=== PATIENT | female | born 1965 | race Caucasian/White ===

== ENCOUNTER 2018-03-22 15:37 | Inpatient (IN) | payer SELFPAY ==
[2018-03-22] MEDS ORDERED: methylPREDNISolone Sod Succ/PF 125 MG/2 ML VIAL ONE (15:43)
[2018-03-22] MEDS ORDERED: Albuterol Sulfate 2.5 mg/3 ml Neb ONE ×2 (15:54→16:27)
[2018-03-22] MEDS ORDERED: Albuterol Sulfate 2.5 mg/0.5 ml Neb ONE ×2 (15:54→16:26)
[2018-03-22 15:57] LABS: Lactate 0.81 mmol/L (0.50-2.20)
[2018-03-22] MEDS ORDERED: cefTRIAXone\\ROCEPHIN 1 GM VIAL ONE (16:07)
[2018-03-22 16:10] LABS: #Basophils 0.1 thou/uL (0.0-0.2); #Eosinphils 0.1 thou/uL (0.0-0.7); #Lymphocytes 3.2 thou/uL (1.20-3.40); #Monocytes 1.1 thou/uL (0.11-0.59); #Neutrophils 6.9 thou/uL (1.40-6.50); %Basophils 0.5 % (0.0-1.0); %Eosinophils 0.5 % (0.0-10.0); %Lymphocytes 28.3 % (21.0-51.0); %Monocytes 9.9 % (0.0-10.0); %Neutrophils 60.7 % (42.0-75.0); Hemoglobin 15.7 g/dL (12.0-16.0); Mean Corpuscular HGB CONC 31.4 g/dL (32.0-36.0); Mean Corpuscular Volume 92.3 fL (78.0-98.0); Mean Platelet Volume 8.5 fL (7.4-10.4); Platelet Count 187 thou/uL (130-400); RBC Distribution Width 12.8 % (11.5-14.5); Red Blood Cell (RBC) Count 5.43 mill/uL (4.20-5.40); White Blood Cell (WBC) Count 11.3 thou/uL (4.8-10.8)
--- NOTE | 2018-03-22 16:26 | RAD ---
FRONTAL VIEW CHEST: Comparison: 01-13-18 Indication: Cough. FINDINGS: There is no evidence of consolidation, effusion, or discrete pneumothorax. Cardiac silhouette is with in normal limits of size for portable technique. IMPRESSION: No focal consolidation. POS: MARGOT
[2018-03-22 16:31] LABS: ALT (SGPT) 18 U/L (8-55); AST (SGOT) 23 U/L (5-34); Albumin 4.3 g/dL (3.5-5.0); Alkaline Phosphatase 99 U/L (40-150); Anion Gap 14 mmol/L (10-20); BUN (Urea Nitrogen) 16 mg/dL (9.8-20.1); Bilirubin, Total 0.4 mg/dL (0.2-1.2); CK (CPK) 362 U/L (29-168); Calc. Creatinine Clearance 0 mL/min (70-130); Calcium 9.7 mg/dL (7.8-10.44); Carbon Dioxide 29 mmol/L (22-29); Chloride 100 mmol/L (98-107); Estimated GFR-MDRD 71; Globulin 3.7 g/dL (2.4-3.5); Glucose 101 mg/dL (70-105); Potassium 4.1 mmol/L (3.5-5.1); Sodium 139 mmol/L (136-145)
[2018-03-22 16:34] LABS: Troponin I Less than 0.010 ng/mL (< 0.028)
[2018-03-22 16:38] LABS: CKMB 6.9 ng/mL (0-6.6)
[2018-03-22] MEDS ORDERED: Azithromycin 500 MG VIAL ONE (16:41)
[2018-03-22] MEDS ORDERED: Acetaminophen 325 MG TAB PO PRN (20:20)
[2018-03-22] MEDS ORDERED: Benzonatate 100 MG CAP PO PRN (20:20)
[2018-03-22] MEDS ORDERED: Dextrose 50% Abboject 50 ML SYRINGE SLOW IVP PRN (20:20)
[2018-03-22] MEDS ORDERED: hydrALAZINE 20 MG/ML VIAL SLOW IVP PRN (20:20)
[2018-03-22] MEDS ORDERED: Dextrose 5% in Water 1,000 ML IV PRN (20:20)
[2018-03-22] MEDS ORDERED: Phenergan/Codeine 10-6.25mg/5ml UDCUP PO PRN (20:20)
[2018-03-22] MEDS ORDERED: HumaLOG 300 UNITS/3 ML VIAL SC PRN (20:20)
[2018-03-22] MEDS ORDERED: Magnesium 2 GM/50 ML 2 GM in Premix Bag 1 BAG IVPB SCH (21:00)
[2018-03-22] MEDS ORDERED: methylPREDNISolone Sod Succ/PF 125 MG/2 ML VIAL IVP SCH (22:00)
[2018-03-22] MEDS: Nicotine 14 MG PATCH TD SCH (22:40)
[2018-03-22] MEDS: Famotidine 20 MG TAB PO SCH (22:40)
[2018-03-23 00:32] VITALS: BMI 44.1
--- NOTE | 2018-03-23 03:42 | HP ---
PRIMARY CARE PHYSICIAN: Dr. Ceja. CHIEF COMPLAINT: Shortness of breath and cough and wheezing. HISTORY OF PRESENT ILLNESS: Ms. Aguust is a very pleasant 52-year-old female that has a history of a sthma, hypertension, and diabetes. She was in her usual state of health until approximately 4 days p rior to admission. She says that on Thursday, she went to the emergency room at [facility] she was having wheezing and feeling short of breath. She was given some neb treatments and steroi ds and was treated for UTI as well as constipation and discharged. She says that she felt okay at le ast to the point where she could go to work on Thursday and Thursday; however, she was still somewhat s hort of breath. She says that it got again bad. On Thursday morning, she started wheezing again, feel ing hot and then was having extreme cough. She says that the coughing spells would take a lot out of her and as a result, she came to our emergency room for evaluation. There, she was given several ne b treatments and it was noted that her blood pressure was elevated as well as heart rate and she is b eing admitted for COPD exacerbation. She says that she has had asthma all of her life, since she was a young child. She has never been diagnosed with COPD. She says that until she moved here about 6 months ago, she would only have one attack a year, but in the last 6 months, she has had 4 to 5 attac ks. She never had to be hospitalized before. She does admit that she has been a fairly heavy smoker over the years. REVIEW OF SYSTEMS: All systems were reviewed and are negative except for that mentioned in the histo ry of present illness. PAST MEDICAL HISTORY: Significant for hypertension, diabetes, asthma, and peptic ulcer disease. PAST SURGICAL HISTORY: She has had bilateral tubal ligation and right ankle surgery. ALLERGIES: No known drug allergies. SOCIAL HISTORY: She is but . She is a nondrinker, but she does smoke about half a pack of cigarettes a day. Prior to that, she smoked a pack a day for 45 years. She has 2 children a nd she is a FULL [employer]. FAMILY HISTORY: Significant for valvular heart disease in her mother. MEDICATIONS: Include metformin 500 mg daily, lisinopril 10 mg once a day, Keflex 500 q.6., prednison e 50 mg, aspirin 81 mg daily, and ranitidine 150 mg daily. PHYSICAL EXAMINATION: GENERAL: She is alert and oriented. She appears to be in some distress due to dyspnea. She is well -developed, well-nourished. VITAL SIGNS: Blood pressure is now 132/64, heart rate 118, respiratory rate of 24, temperature is 97 .7. HEENT: Pupils are equal, round, and reactive. Extraocular muscles are intact. Her sclerae anicteri c. Throat: There is no erythema, no exudates. NECK: No adenopathy, no bruits. LUNGS: She has got fairly tight wheezing throughout both lung nava, no rales, no rhonchi. CARDIOVASCULAR: She has a normal S1, S2. I do not appreciate an S3 or S4. No murmurs, clicks or ru bs. ABDOMEN: Obese, it is soft, it is nontender, nondistended. Positive for bowel sounds. There is no rebound, no guarding. EXTREMITIES: There is trace pedal edema, no calf tenderness. No joint effusions. NEUROLOGIC: Muscle strength is 5/5 in both her upper and lower extremities, and there is no focal we akness. SKIN AND INTEGUMENT: No skin changes. No rash. LABORATORY DATA AND X-RAYS: On her chest x-ray, she has a normal heart size. There is no evidence o f any infiltrates and her lungs are slightly hyperexpanded this is by my reading. Lab results, tropo nins less 0.010. Sodium 139, potassium 4.1, chloride is 100, CO2 is 29, BUN is 16, creatinine 0.84, glucose is 101. The white blood cell count is 11.3, hemoglobin 15.7, hematocrit is 50.1, platelet co unt is 187. ASSESSMENT AND PLAN: This is a pleasant 52-year-old female who presents with an asthma/asthmatic bro nchitis exacerbation. She has acute respiratory failure secondary to this. She will be admitted to the medical floor, started on DuoNebs, IV steroids, a long-acting beta agonist as well as empiric ant ibiotics. We will give her a dose of IV magnesium and she will also be placed on deep venous thrombo sis as well as gastrointestinal prophylaxis. 1. For diabetes mellitus, we will continue her home medications as well as sliding scale insulin. 2. Hypertension. Again, continue home medications and p.r.n. as needed.
[2018-03-23 04:58] LABS: #Lymphocytes 0.8 thou/uL (1.20-3.40); #Monocytes 0.2 thou/uL (0.11-0.59); #Neutrophils 6.5 thou/uL (1.40-6.50); %Basophils 0.3 % (0.0-1.0); %Eosinophils 0.3 % (0.0-10.0); %Monocytes 2.7 % (0.0-10.0); %Neutrophils 86.7 % (42.0-75.0); Hemoglobin 14.6 g/dL (12.0-16.0); Mean Corpuscular HGB CONC 31.6 g/dL (32.0-36.0); Mean Corpuscular Hemoglobin 29.3 pg (27.0-31.0); Mean Corpuscular Volume 92.6 fL (78.0-98.0); Mean Platelet Volume 8.5 fL (7.4-10.4); Platelet Count 165 thou/uL (130-400); RBC Distribution Width 12.8 % (11.5-14.5); Red Blood Cell (RBC) Count 4.99 mill/uL (4.20-5.40); White Blood Cell (WBC) Count 7.5 thou/uL (4.8-10.8)
[2018-03-23 05:06] LABS: Anion Gap 11 mmol/L (10-20); BUN (Urea Nitrogen) 14 mg/dL (9.8-20.1); Calc. Creatinine Clearance 156 mL/min (70-130); Calcium 9.1 mg/dL (7.8-10.44); Carbon Dioxide 27 mmol/L (22-29); Chloride 101 mmol/L (98-107); Estimated GFR-MDRD 79; Glucose 211 mg/dL (70-105); Sodium 134 mmol/L (136-145)
[2018-03-23] MEDS: Mometasone/Formoterol 120 PUFF INHALER INH SCH ×2 (07:00→19:04)
[2018-03-23] MEDS: Famotidine 20 MG TAB PO SCH ×2 (10:04→20:16)
[2018-03-23] MEDS: Lisinopril 10 MG TAB PO SCH (10:05)
[2018-03-23] MEDS: Enoxaparin Sodium 40 MG/0.4 ML SYRINGE SC SCH (10:05)
[2018-03-23] MEDS: Aspirin 81 mg Enteric Coated Tablet PO SCH (10:06)
[2018-03-23] MEDS: HumaLOG 300 UNITS/3 ML VIAL SC PRN ×2 (12:11→16:13)
--- NOTE | 2018-03-23 12:29 | PDOC.PN ---
- Subjective Encounter Start Date: 03/23/18 Encounter Start Time: 12:27 Ms. August was seen today in follow-up of Asthma/COPD exacerbation. She says she feels a little better today. She is breathing better, and is less short of breath. - Objective Resuscitation Status: Resuscitation Status FULL:Full Resuscitation MAR Reviewed: Yes Vital Signs & Weight: Vital Signs (12 hours) Temp Pulse Resp BP BP Pulse Ox 03/23/18 12:04 90 16 03/23/18 11:00 97.7 F 83 18 135/92 H 91 L 03/23/18 10:05 127/87 03/23/18 08:00 98.1 F 89 20 127/87 94 L 03/23/18 07:03 80 16 03/23/18 04:00 98.0 F 87 20 137/89 91 L 03/23/18 00:44 89 20 92 L Weight Weight 257 lb 1 oz I&O: 03/22/18 03/23/18 03/24/18 06:59 06:59 06:59 Intake Total 1350 Balance 1350 Result Diagrams: 03/23/18 04:42 03/23/18 04:42 Additional Labs: Accuchecks 03/23/18 03/23/18 03/22/18 11:42 06:05 22:51 POC Glucose 183 H 175 H 240 H Phys Exam - Physical Examination HEENT: PERRLA Respiratory: no rales, wheezing present + fairly tight bilater wheezing- improved from yesterday Cardiovascular: RRR, no significant murmur, no rub Gastrointestinal: soft, non-tender, no distention, positive bowel sounds Musculoskeletal: no edema Dx/Plan (1) Asthma exacerbation in COPD Code(s): J44.1 - CHRONIC OBSTRUCTIVE PULMONARY DISEASE W (ACUTE) EXACERBATION; J45.901 - UNSPECIFIED ASTHMA WITH (ACUTE) EXACERBATION Status: Acute (2) Acute respiratory failure with hypoxemia Code(s): J96.01 - ACUTE RESPIRATORY FAILURE WITH HYPOXIA Status: Acute (3) Hypertension Code(s): I10 - ESSENTIAL (PRIMARY) HYPERTENSION Status: Chronic (4) Diabetes mellitus type 2 in obese Code(s): E11.69 - TYPE 2 DIABETES MELLITUS WITH OTHER SPECIFIED COMPLICATION; E66.9 - OBESITY, UNSPECIFIED Status: Chronic (5) Tobacco abuse Code(s): Z72.0 - TOBACCO USE Status: Chronic - Plan * Asthma Exacerbation- she is improving - will continue Duonebs, and Steroids, and antibiotics. She is not yet ready for discharge * HTN- blood pressure is better- continue her home medications. * DM- blood glucose is stable- continue Metformin, and SSI * Ambulate * Discussed smoking cessation
[2018-03-23] MEDS: cefTRIAXone\\ROCEPHIN 1 GM in Sodium Chloride 0.9% 100 ML IVPB SCH (16:08)
[2018-03-23] MEDS: Azithromycin 500 MG in Sodium Chloride 0.9% 250 ML 250 ML IVPB SCH (17:32)
[2018-03-23] MEDS: Ipratropium Oral Inhaler (200 INHALATIONS) INH SCH (19:05)
[2018-03-23] MEDS: Nicotine 14 MG PATCH TD SCH (20:16)
[2018-03-24] MEDS: Mometasone/Formoterol 120 PUFF INHALER INH SCH ×2 (06:40→19:16)
[2018-03-24] MEDS: Ipratropium Oral Inhaler (200 INHALATIONS) INH SCH ×2 (06:43→19:17)
[2018-03-24] MEDS: Enoxaparin Sodium 40 MG/0.4 ML SYRINGE SC SCH (08:32)
[2018-03-24] MEDS: Lisinopril 10 MG TAB PO SCH (08:32)
[2018-03-24] MEDS: Aspirin 81 mg Enteric Coated Tablet PO SCH (08:32)
[2018-03-24] MEDS: metFORMIN 500 MG TAB PO SCH (08:32)
[2018-03-24] MEDS: Famotidine 20 MG TAB PO SCH ×2 (08:32→20:27)
[2018-03-24] MEDS ORDERED: Prevnar 13-Val Conj/PF 0.5 ML SYRINGE IM ONE (09:00)
--- NOTE | 2018-03-24 11:37 | PDOC.PN ---
- Subjective Encounter Start Date: 03/24/18 Encounter Start Time: 11:36 Ms. August was seen today in follow-up of Asthma and COPD exacerbation. She is feeling a bit better, but still quite fatigued. She has not been up to ambulate today. - Objective Resuscitation Status: Resuscitation Status FULL:Full Resuscitation MAR Reviewed: Yes Vital Signs & Weight: Vital Signs (12 hours) Pulse Resp BP Pulse Ox 03/24/18 08:32 128/90 03/24/18 08:00 98 03/24/18 06:43 73 16 97 03/24/18 06:40 73 16 97 03/24/18 00:21 90 20 97 Weight Weight 257 lb 1 oz I&O: 03/23/18 03/24/18 03/25/18 06:59 06:59 06:59 Intake Total 1350 2740 Balance 1350 2740 Result Diagrams: 03/23/18 04:42 03/23/18 04:42 Additional Labs: Accuchecks 03/24/18 03/23/18 03/23/18 05:30 19:45 16:12 POC Glucose 173 H 162 H 204 H 03/23/18 11:42 POC Glucose 183 H Phys Exam - Physical Examination HEENT: PERRLA Respiratory: no rales, no rhonchi, wheezing present Cardiovascular: RRR, no significant murmur, no rub Gastrointestinal: soft, non-tender, no distention, positive bowel sounds Musculoskeletal: pulses present, edema present trace pedal edema Neurological: non-focal, moves all 4 limbs Dx/Plan (1) Asthma exacerbation in COPD Code(s): J44.1 - CHRONIC OBSTRUCTIVE PULMONARY DISEASE W (ACUTE) EXACERBATION; J45.901 - UNSPECIFIED ASTHMA WITH (ACUTE) EXACERBATION Status: Acute (2) Acute respiratory failure with hypoxemia Code(s): J96.01 - ACUTE RESPIRATORY FAILURE WITH HYPOXIA Status: Acute (3) Hypertension Code(s): I10 - ESSENTIAL (PRIMARY) HYPERTENSION Status: Chronic (4) Diabetes mellitus type 2 in obese Code(s): E11.69 - TYPE 2 DIABETES MELLITUS WITH OTHER SPECIFIED COMPLICATION; E66.9 - OBESITY, UNSPECIFIED Status: Chronic (5) Tobacco abuse Code(s): Z72.0 - TOBACCO USE Status: Chronic - Plan * Asthma/ COPD exacerbation - slowly improving. Will add Singulair,and will begin to torri steroids * Continue Rocephin and Zithromycin * DM- blood glucose is stable * HTN- blood pressure is stable * Tobacco Abuse- continue nicotine patch.
[2018-03-24] MEDS: HumaLOG 300 UNITS/3 ML VIAL SC PRN (12:15)
[2018-03-24] MEDS: cefTRIAXone\\ROCEPHIN 1 GM in Sodium Chloride 0.9% 100 ML IVPB SCH (16:44)
[2018-03-24] MEDS: Azithromycin 500 MG in Sodium Chloride 0.9% 250 ML 250 ML IVPB SCH (17:54)
[2018-03-24] MEDS ORDERED: Milk Of Magnesia 30 ML UDCUP PO PRN (19:13)
[2018-03-24] MEDS: Bisacodyl 5 MG TAB PO SCH (20:27)
[2018-03-24] MEDS: Montelukast Sodium 10 mg Tablet PO SCH (20:27)
[2018-03-24] MEDS: Nicotine 14 MG PATCH TD SCH (20:28)
[2018-03-25] MEDS: Ipratropium Oral Inhaler (200 INHALATIONS) INH SCH ×2 (06:42→19:01)
[2018-03-25] MEDS: Mometasone/Formoterol 120 PUFF INHALER INH SCH ×2 (06:43→18:58)
[2018-03-25] MEDS: Lisinopril 10 MG TAB PO SCH (09:03)
[2018-03-25] MEDS: Famotidine 20 MG TAB PO SCH ×2 (09:03→20:16)
[2018-03-25] MEDS: metFORMIN 500 MG TAB PO SCH (09:03)
[2018-03-25] MEDS: Aspirin 81 mg Enteric Coated Tablet PO SCH (09:03)
[2018-03-25] MEDS: Enoxaparin Sodium 40 MG/0.4 ML SYRINGE SC SCH (09:05)
--- NOTE | 2018-03-25 13:25 | PDOC.PN ---
- Subjective Encounter Start Date: 03/25/18 Encounter Start Time: 13:23 Subjective: Feeling better, no longer SOB - Objective Resuscitation Status: Resuscitation Status FULL:Full Resuscitation MAR Reviewed: Yes Vital Signs & Weight: Vital Signs (12 hours) Temp Pulse Resp BP BP Pulse Ox 03/25/18 11:45 98.0 F 84 20 154/97 H 97 03/25/18 09:03 129/89 95 03/25/18 08:00 95 03/25/18 07:45 98.2 F 79 20 129/89 90 L 03/25/18 06:46 97 03/25/18 06:45 75 16 97 03/25/18 06:43 78 16 97 Weight Weight 257 lb 1 oz I&O: 03/24/18 03/25/18 03/26/18 06:59 06:59 06:59 Intake Total 0 2029 Balance 2739 2029 Result Diagrams: 03/23/18 04:42 03/23/18 04:42 Additional Labs: Accuchecks 03/25/18 03/25/18 03/24/18 11:04 04:54 19:34 POC Glucose 120 H 94 131 H 03/24/18 16:53 POC Glucose 111 H Phys Exam - Physical Examination HEENT: PERRLA, moist MMs, sclera anicteric, TM's clear, oral pharynx no lesions , 2+ tonsils Neck: no nodes, no JVD, supple, full ROM Respiratory: wheezing present Cardiovascular: RRR, no significant murmur, no rub, gallop, irregular Gastrointestinal: soft, non-tender, no distention, positive bowel sounds Musculoskeletal: no edema, pulses present Neurological: non-focal, normal sensation, moves all 4 limbs Dx/Plan (1) Acute respiratory failure with hypoxemia Code(s): J96.01 - ACUTE RESPIRATORY FAILURE WITH HYPOXIA Status: Acute Comment: Continue IV abx, nebs and steroids, oxygen (2) Asthma exacerbation in COPD Code(s): J44.1 - CHRONIC OBSTRUCTIVE PULMONARY DISEASE W (ACUTE) EXACERBATION; J45.901 - UNSPECIFIED ASTHMA WITH (ACUTE) EXACERBATION Status: Acute (3) Diabetes mellitus type 2 in obese Code(s): E11.69 - TYPE 2 DIABETES MELLITUS WITH OTHER SPECIFIED COMPLICATION; E66.9 - OBESITY, UNSPECIFIED Status: Chronic Comment: Insulin SS and Metformin (4) Hypertension Code(s): I10 - ESSENTIAL (PRIMARY) HYPERTENSION Status: Chronic Comment: continue home meds (5) Tobacco abuse Code(s): Z72.0 - TOBACCO USE Status: Chronic - Plan cont current plan of care, continue antibiotics, respiratory therapy, DVT proph w/lovenox, DVT proph w/SCDs * .
[2018-03-25] MEDS: cefTRIAXone\\ROCEPHIN 1 GM in Sodium Chloride 0.9% 100 ML IVPB SCH (17:00)
[2018-03-25] MEDS: HumaLOG 300 UNITS/3 ML VIAL SC PRN (17:02)
[2018-03-25] MEDS: Azithromycin 500 MG in Sodium Chloride 0.9% 250 ML 250 ML IVPB SCH (18:10)
[2018-03-25] MEDS: Nicotine 14 MG PATCH TD SCH (20:16)
[2018-03-25] MEDS: Montelukast Sodium 10 mg Tablet PO SCH (20:16)
[2018-03-25] MEDS: Bisacodyl 5 MG TAB PO SCH (20:16)
[2018-03-26] MEDS: Ipratropium Oral Inhaler (200 INHALATIONS) INH SCH ×2 (06:29→18:18)
[2018-03-26] MEDS: Mometasone/Formoterol 120 PUFF INHALER INH SCH ×2 (06:30→18:17)
[2018-03-26] MEDS: Lisinopril 10 MG TAB PO SCH (07:40)
[2018-03-26] MEDS: Famotidine 20 MG TAB PO SCH ×2 (07:40→20:40)
[2018-03-26] MEDS: metFORMIN 500 MG TAB PO SCH (07:40)
[2018-03-26] MEDS: Enoxaparin Sodium 40 MG/0.4 ML SYRINGE SC SCH (07:40)
[2018-03-26] MEDS: Aspirin 81 mg Enteric Coated Tablet PO SCH (07:40)
--- NOTE | 2018-03-26 14:41 | PDOC.PN ---
- Subjective Encounter Start Date: 03/26/18 Encounter Start Time: 12:00 Subjective: pt up in bed coughing - Objective Resuscitation Status: Resuscitation Status FULL:Full Resuscitation Vital Signs & Weight: Vital Signs (12 hours) Temp Pulse Resp BP BP BP Pulse Ox 03/26/18 12:14 100 20 95 03/26/18 11:31 98.9 F 99 21 H 142/84 H 92 L 03/26/18 08:00 93 L 03/26/18 07:41 98.2 F 89 20 123/89 93 L 03/26/18 07:40 123/89 03/26/18 06:30 91 18 95 03/26/18 06:28 91 18 95 03/26/18 04:00 97.4 F L 83 18 129/86 91 L Weight Weight 257 lb 1 oz I&O: 03/25/18 03/26/18 03/27/18 06:59 06:59 06:59 Intake Total 2029 500 Balance 2029 500 Result Diagrams: 03/23/18 04:42 03/23/18 04:42 Additional Labs: Accuchecks 03/26/18 03/26/18 03/25/18 11:31 05:01 20:42 POC Glucose 160 H 108 121 H 03/25/18 15:32 POC Glucose 211 H Phys Exam - Physical Examination Neck: no nodes, no JVD, supple, full ROM Respiratory: wheezing present mild rhonchi all over too Cardiovascular: RRR, no significant murmur, no rub, gallop, irregular Gastrointestinal: soft, non-tender, no distention, positive bowel sounds Musculoskeletal: no edema, pulses present, edema present Dx/Plan (1) Acute respiratory failure with hypoxemia Code(s): J96.01 - ACUTE RESPIRATORY FAILURE WITH HYPOXIA Status: Acute Comment: Continue IV abx, nebs and steroids, oxygen (2) Hypertension Code(s): I10 - ESSENTIAL (PRIMARY) HYPERTENSION Status: Chronic Comment: continue home meds (3) Tobacco abuse Code(s): Z72.0 - TOBACCO USE Status: Chronic - Plan will continue current tx -: pt appears ill, will add meds for cough and mucinex -: continue duoneb * . Review of Systems - Review of Systems Respiratory: Cough, Shortness of Breath, Wheezing Cardiovascular: negative: chest pain, palpitations, orthopnea, paroxysmal nocturnal dyspnea, edema, light headedness, other Gastrointestinal: negative: Nausea, Vomiting, Abdominal Pain, Diarrhea, Constipation, Melena, Hematochezia, Other - Medications/Allergies Allergies/Adverse Reactions: Allergies Allergy/AdvReac Type Severity Reaction Status Date / Time No Known Allergies Allergy Unverified 03/22/18 19:30 Medications: Current Medications Acetaminophen (Tylenol) 650 mg PO Q4H PRN PRN Reason: Headache/Fever/Mild Pain (1-3) Last Admin: 03/23/18 10:14 Dose: 650 mg Albuterol/Ipratropium (Duoneb) 3 ml NEB [id number] PRN PRN Reason: SOB &/or Wheezing Albuterol/Ipratropium (Duoneb) 3 ml NEB [id number] [facility] Last Admin: 03/26/18 12:14 Dose: 3 ml Aspirin (Ecotrin) 81 mg PO DAILY [facility] Last Admin: 03/26/18 07:40 Dose: 81 mg Benzonatate (Tessalon) 100 mg PO Q6H PRN PRN Reason: Cough Bisacodyl (Dulcolax) 10 mg PO HS [facility] Last Admin: 03/25/18 20:16 Dose: 10 mg Dextrose/Water (Dextrose 50%) 25 gm SLOW IVP PRN PRN PRN Reason: Hypoglycemia Enoxaparin Sodium (Lovenox) 40 mg SC 0900 [facility] Last Admin: 03/26/18 07:40 Dose: 40 mg Famotidine (Pepcid) 20 mg PO BID [facility] Last Admin: 03/26/18 07:40 Dose: 20 mg Glucagon (Glucagon) 1 mg IM PRN PRN PRN Reason: Hypoglycemia Guaifenesin (Mucinex) 600 mg PO Q12HR [facility] Hydralazine HCl (Apresoline) 10 mg SLOW IVP Q4H PRN PRN Reason: SBP > 180 and HR < 70 Azithromycin 500 mg/ Sodium (Chloride) 250 mls @ 250 mls/hr IVPB Q24HR [facility] Last Admin: 03/25/18 18:10 Dose: 250 mls Ceftriaxone Sodium 1 gm/ (Sodium Chloride) 100 mls @ 200 mls/hr IVPB Q24HR [facility] Last Admin: 03/25/18 17:00 Dose: 100 mls Dextrose/Water (D5w) 1,000 mls @ 0 mls/hr IV .Q0M PRN PRN Reason: Hypoglycemia Insulin Human Lispro (Humalog) 0 units SC .MODERATE SLIDING SC PRN PRN Reason: Moderate Correctional Scale Last Admin: 03/25/18 17:02 Dose: 4 unit Insulin Human Lispro (Humalog) 0 units SC .BEDTIME SLIDING SC PRN PRN Reason: Bedtime Correctional Scale Last Admin: 03/22/18 23:09 Dose: 2 unit Ipratropium [place] (Atrovent Hfa) 2 puff INH BID-RT [facility] Last Admin: 03/26/18 06:29 Dose: Not Given Lisinopril (Zestril) 10 mg PO DAILY [facility] Last Admin: 03/26/18 07:40 Dose: 10 mg Magnesium Hydroxide (Milk Of Magnesium) 30 ml PO Q6H PRN PRN Reason: Constipation Metformin HCl (Glucophage) 500 mg PO QAM-WM [facility] Last Admin: 03/26/18 07:40 Dose: 500 mg Methylprednisolone Sodium Succinate (Solu-Medrol) 40 mg IVP DAILY [facility] Last Admin: 03/26/18 07:48 Dose: 40 mg Mometasone Furoate/Formoterol Fumar (Dulera 100 Mcg/5 Mcg Inhaler) 1 puff INH BID-RT [facility] Last Admin: 03/26/18 06:30 Dose: 1 puff Montelukast Sodium (Singulair) 10 mg PO QPM [facility] Last Admin: 03/25/18 20:16 Dose: 10 mg Nicotine (Nicoderm Patch) 14 mg TD Q24HR [facility] Last Admin: 03/25/18 20:16 Dose: 14 mg Promethazine HCl/Codeine (Phenergan/Codeine Syrup) 5 ml PO Q4H PRN PRN Reason: Cough Last Admin: 03/23/18 20:15 Dose: 5 ml Sodium Chloride (Flush - Normal Saline) 10 ml IVF Q12HR [facility] Last Admin: 03/26/18 07:51 Dose: 10 ml Sodium Chloride (Flush - Normal Saline) 10 ml IVF PRN PRN PRN Reason: Saline Flush
[2018-03-26] MEDS: cefTRIAXone\\ROCEPHIN 1 GM in Sodium Chloride 0.9% 100 ML IVPB SCH (15:15)
[2018-03-26] MEDS: Azithromycin 500 MG in Sodium Chloride 0.9% 250 ML 250 ML IVPB SCH (16:18)
[2018-03-26] MEDS: HumaLOG 300 UNITS/3 ML VIAL SC PRN (16:25)
[2018-03-26] MEDS: guaiFENesin ER 600 MG TAB PO SCH (20:40)
[2018-03-26] MEDS: Bisacodyl 5 MG TAB PO SCH (20:40)
[2018-03-26] MEDS: Montelukast Sodium 10 mg Tablet PO SCH (20:40)
[2018-03-26] MEDS: Nicotine 14 MG PATCH TD SCH (20:41)
[2018-03-27] MEDS: Ipratropium Oral Inhaler (200 INHALATIONS) INH SCH ×2 (07:08→18:50)
[2018-03-27] MEDS: Mometasone/Formoterol 120 PUFF INHALER INH SCH ×2 (07:09→18:50)
[2018-03-27] MEDS: Lisinopril 10 MG TAB PO SCH (07:55)
[2018-03-27] MEDS: Aspirin 81 mg Enteric Coated Tablet PO SCH (07:55)
[2018-03-27] MEDS: Enoxaparin Sodium 40 MG/0.4 ML SYRINGE SC SCH (07:55)
[2018-03-27] MEDS: Famotidine 20 MG TAB PO SCH ×2 (07:55→20:47)
[2018-03-27] MEDS: guaiFENesin ER 600 MG TAB PO SCH ×2 (07:56→20:48)
[2018-03-27] MEDS: metFORMIN 500 MG TAB PO SCH (07:56)
--- NOTE | 2018-03-27 12:12 | PDOC.PN ---
- Subjective Encounter Start Date: 03/27/18 Encounter Start Time: 11:15 Subjective: pt up in bed no complains - Objective Resuscitation Status: Resuscitation Status FULL:Full Resuscitation Vital Signs & Weight: Vital Signs (12 hours) Temp Pulse Resp BP BP BP Pulse Ox 03/27/18 12:09 86 18 95 03/27/18 11:37 98.3 F 86 20 147/99 H 93 L 03/27/18 08:00 98.2 F 86 20 137/84 97 03/27/18 07:55 123/89 03/27/18 07:09 97 16 96 03/27/18 07:07 97 16 96 03/27/18 04:00 97.9 F 97 20 148/94 H 93 L 03/27/18 00:14 90 18 Weight Weight 257 lb 1 oz I&O: 03/26/18 03/27/18 03/28/18 06:59 06:59 06:59 Intake Total 500 400 240 Balance 500 400 240 Result Diagrams: 03/23/18 04:42 03/23/18 04:42 Additional Labs: Accuchecks 03/27/18 03/27/18 03/26/18 11:09 04:58 20:45 POC Glucose 172 H 114 H 154 H 03/26/18 15:25 POC Glucose 208 H Phys Exam - Physical Examination mild wheezing all over Cardiovascular: RRR, no significant murmur, no rub, gallop, irregular Gastrointestinal: soft, non-tender, no distention, positive bowel sounds Musculoskeletal: no edema, pulses present, edema present Dx/Plan (1) Acute respiratory failure with hypoxemia Code(s): J96.01 - ACUTE RESPIRATORY FAILURE WITH HYPOXIA Status: Acute Comment: Continue IV abx, nebs and steroids, oxygen (2) Hypertension Code(s): I10 - ESSENTIAL (PRIMARY) HYPERTENSION Status: Chronic Comment: continue home meds (3) Tobacco abuse Code(s): Z72.0 - TOBACCO USE Status: Chronic - Plan pt states she still does not feel well -: continue iv abx will change to po in am * . Review of Systems - Review of Systems Respiratory: Cough, Shortness of Breath Cardiovascular: negative: chest pain, palpitations, orthopnea, paroxysmal nocturnal dyspnea, edema, light headedness, other Gastrointestinal: negative: Nausea, Vomiting, Abdominal Pain, Diarrhea, Constipation, Melena, Hematochezia, Other - Medications/Allergies Allergies/Adverse Reactions: Allergies Allergy/AdvReac Type Severity Reaction Status Date / Time No Known Allergies Allergy Unverified 03/22/18 19:30 Medications: Current Medications Acetaminophen (Tylenol) 650 mg PO Q4H PRN PRN Reason: Headache/Fever/Mild Pain (1-3) Last Admin: 03/23/18 10:14 Dose: 650 mg Albuterol/Ipratropium (Duoneb) 3 ml NEB U1MG-MS PRN PRN Reason: SOB &/or Wheezing Albuterol/Ipratropium (Duoneb) 3 ml NEB [id number] [facility] Last Admin: 03/27/18 12:09 Dose: 3 ml Aspirin (Ecotrin) 81 mg PO DAILY [facility] Last Admin: 03/27/18 07:55 Dose: 81 mg Benzonatate (Tessalon) 100 mg PO Q6H PRN PRN Reason: Cough Bisacodyl (Dulcolax) 10 mg PO HS [facility] Last Admin: 03/26/18 20:40 Dose: Not Given Dextrose/Water (Dextrose 50%) 25 gm SLOW IVP PRN PRN PRN Reason: Hypoglycemia Enoxaparin Sodium (Lovenox) 40 mg SC 0900 [facility] Last Admin: 03/27/18 07:55 Dose: 40 mg Famotidine (Pepcid) 20 mg PO BID [facility] Last Admin: 03/27/18 07:55 Dose: 20 mg Glucagon (Glucagon) 1 mg IM PRN PRN PRN Reason: Hypoglycemia Guaifenesin (Mucinex) 600 mg PO Q12HR [facility] Last Admin: 03/27/18 07:56 Dose: 600 mg Hydralazine HCl (Apresoline) 10 mg SLOW IVP Q4H PRN PRN Reason: SBP > 180 and HR < 70 Azithromycin 500 mg/ Sodium (Chloride) 250 mls @ 250 mls/hr IVPB Q24HR [facility] Last Admin: 03/26/18 16:18 Dose: 250 mls Ceftriaxone Sodium 1 gm/ (Sodium Chloride) 100 mls @ 200 mls/hr IVPB Q24HR [facility] Last Admin: 03/26/18 15:15 Dose: 100 mls Dextrose/Water (D5w) 1,000 mls @ 0 mls/hr IV .Q0M PRN PRN Reason: Hypoglycemia Insulin Human Lispro (Humalog) 0 units SC .MODERATE SLIDING SC PRN PRN Reason: Moderate Correctional Scale Last Admin: 03/26/18 16:25 Dose: 4 unit Insulin Human Lispro (Humalog) 0 units SC .BEDTIME SLIDING SC PRN PRN Reason: Bedtime Correctional Scale Last Admin: 03/22/18 23:09 Dose: 2 unit Ipratropium [place] (Atrovent Hfa) 2 puff INH BID-RT [facility] Last Admin: 03/27/18 07:08 Dose: Not Given Lisinopril (Zestril) 10 mg PO DAILY [facility] Last Admin: 03/27/18 07:55 Dose: 10 mg Magnesium Hydroxide (Milk Of Magnesium) 30 ml PO Q6H PRN PRN Reason: Constipation Metformin HCl (Glucophage) 500 mg PO QAM[facility] Last Admin: 03/27/18 07:56 Dose: 500 mg Mometasone Furoate/Formoterol Fumar (Dulera 100 Mcg/5 Mcg Inhaler) 1 puff INH BID-RT [facility] Last Admin: 03/27/18 07:09 Dose: 1 puff Montelukast Sodium (Singulair) 10 mg PO QPM [facility] Last Admin: 03/26/18 20:40 Dose: 10 mg Nicotine (Nicoderm Patch) 14 mg TD Q24HR [facility] Last Admin: 03/26/18 20:41 Dose: 14 mg Prednisone (Prednisone) 40 mg PO QA[facility] Promethazine HCl/Codeine (Phenergan/Codeine Syrup) 5 ml PO Q4H PRN PRN Reason: Cough Last Admin: 03/23/18 20:15 Dose: 5 ml Sodium Chloride (Flush - Normal Saline) 10 ml IVF Q12HR [facility] Last Admin: 03/27/18 07:56 Dose: 10 ml Sodium Chloride (Flush - Normal Saline) 10 ml IVF PRN PRN PRN Reason: Saline Flush
[2018-03-27] MEDS: cefTRIAXone\\ROCEPHIN 1 GM in Sodium Chloride 0.9% 100 ML IVPB SCH (15:47)
[2018-03-27] MEDS: Azithromycin 500 MG in Sodium Chloride 0.9% 250 ML 250 ML IVPB SCH (16:20)
[2018-03-27] MEDS: Bisacodyl 5 MG TAB PO SCH (20:47)
[2018-03-27] MEDS: Montelukast Sodium 10 mg Tablet PO SCH (20:48)
[2018-03-27] MEDS: Nicotine 14 MG PATCH TD SCH (20:48)
[2018-03-28] MEDS: Ipratropium Oral Inhaler (200 INHALATIONS) INH SCH ×2 (06:17→18:47)
[2018-03-28] MEDS: Mometasone/Formoterol 120 PUFF INHALER INH SCH ×2 (06:21→18:48)
[2018-03-28] MEDS: Famotidine 20 MG TAB PO SCH ×2 (07:29→20:36)
[2018-03-28] MEDS: Aspirin 81 mg Enteric Coated Tablet PO SCH (07:29)
[2018-03-28] MEDS: predniSONE 20 MG TAB PO SCH (07:29)
[2018-03-28] MEDS: Enoxaparin Sodium 40 MG/0.4 ML SYRINGE SC SCH (07:29)
[2018-03-28] MEDS: guaiFENesin ER 600 MG TAB PO SCH ×2 (07:29→20:36)
[2018-03-28] MEDS: Lisinopril 10 MG TAB PO SCH (07:30)
[2018-03-28] MEDS: metFORMIN 500 MG TAB PO SCH (07:30)
--- NOTE | 2018-03-28 15:53 | PDOC.PN ---
- Subjective Encounter Start Date: 03/28/18 Encounter Start Time: 11:15 Subjective: pt up in bed still feels sob - Objective Resuscitation Status: Resuscitation Status FULL:Full Resuscitation Vital Signs & Weight: Vital Signs (12 hours) Temp Pulse Resp BP BP Pulse Ox 03/28/18 11:32 85 16 92 L 03/28/18 08:00 98.2 F 78 20 117/81 93 L 03/28/18 07:30 123/89 03/28/18 06:21 83 16 96 03/28/18 06:20 83 16 96 03/28/18 04:44 97.5 F L 83 20 124/83 92 L Weight Weight 257 lb 1 oz I&O: 03/27/18 03/28/18 03/29/18 06:59 06:59 06:59 Intake Total 400 1220 600 Balance 400 1220 600 Result Diagrams: 03/23/18 04:42 03/23/18 04:42 Additional Labs: Accuchecks 03/28/18 03/28/18 03/27/18 12:03 04:42 20:10 POC Glucose 149 H 103 197 H 03/27/18 16:25 POC Glucose 186 H Phys Exam - Physical Examination Respiratory: wheezing present exp wheeze all over Cardiovascular: RRR, no significant murmur, no rub, gallop, irregular Gastrointestinal: soft, non-tender, no distention, positive bowel sounds Dx/Plan (1) Acute respiratory failure with hypoxemia Code(s): J96.01 - ACUTE RESPIRATORY FAILURE WITH HYPOXIA Status: Acute Comment: Continue IV abx, nebs and steroids, oxygen (2) Hypertension Code(s): I10 - ESSENTIAL (PRIMARY) HYPERTENSION Status: Chronic Comment: continue home meds (3) Tobacco abuse Code(s): Z72.0 - TOBACCO USE Status: Chronic - Plan pt still has significant wheezing all over -: will continue current tx and add check viral panel * . Review of Systems - Review of Systems Respiratory: Cough, Shortness of Breath Cardiovascular: negative: chest pain, palpitations, orthopnea, paroxysmal nocturnal dyspnea, edema, light headedness, other Gastrointestinal: negative: Nausea, Vomiting, Abdominal Pain, Diarrhea, Constipation, Melena, Hematochezia, Other - Medications/Allergies Allergies/Adverse Reactions: Allergies Allergy/AdvReac Type Severity Reaction Status Date / Time No Known Allergies Allergy Unverified 03/22/18 19:30 Medications: Current Medications Acetaminophen (Tylenol) 650 mg PO Q4H PRN PRN Reason: Headache/Fever/Mild Pain (1-3) Last Admin: 03/23/18 10:14 Dose: 650 mg Albuterol/Ipratropium (Duoneb) 3 ml NEB [id number] PRN PRN Reason: SOB &/or Wheezing Albuterol/Ipratropium (Duoneb) 3 ml NEB [id number] [facility] Last Admin: 03/28/18 11:32 Dose: 3 ml Aspirin (Ecotrin) 81 mg PO DAILY [facility] Last Admin: 03/28/18 07:29 Dose: 81 mg Benzonatate (Tessalon) 100 mg PO Q6H PRN PRN Reason: Cough Bisacodyl (Dulcolax) 10 mg PO HS [facility] Last Admin: 03/27/18 20:47 Dose: 10 mg Dextrose/Water (Dextrose 50%) 25 gm SLOW IVP PRN PRN PRN Reason: Hypoglycemia Enoxaparin Sodium (Lovenox) 40 mg SC 0900 [facility] Last Admin: 03/28/18 07:29 Dose: 40 mg Famotidine (Pepcid) 20 mg PO BID [facility] Last Admin: 03/28/18 07:29 Dose: 20 mg Glucagon (Glucagon) 1 mg IM PRN PRN PRN Reason: Hypoglycemia Guaifenesin (Mucinex) 600 mg PO Q12HR [facility] Last Admin: 03/28/18 07:29 Dose: 600 mg Hydralazine HCl (Apresoline) 10 mg SLOW IVP Q4H PRN PRN Reason: SBP > 180 and HR < 70 Dextrose/Water (D5w) 1,000 mls @ 0 mls/hr IV .Q0M PRN PRN Reason: Hypoglycemia Insulin Human Lispro (Humalog) 0 units SC .MODERATE SLIDING SC PRN PRN Reason: Moderate Correctional Scale Last Admin: 03/26/18 16:25 Dose: 4 unit Insulin Human Lispro (Humalog) 0 units SC .BEDTIME SLIDING SC PRN PRN Reason: Bedtime Correctional Scale Last Admin: 03/22/18 23:09 Dose: 2 unit Ipratropium [place] (Atrovent Hfa) 2 puff INH BID-RT [facility] Last Admin: 03/28/18 06:17 Dose: Not Given Levofloxacin (Levaquin) 500 mg PO 0600 [facility] Lisinopril (Zestril) 10 mg PO DAILY [facility] Last Admin: 03/28/18 07:30 Dose: 10 mg Magnesium Hydroxide (Milk Of Magnesium) 30 ml PO Q6H PRN PRN Reason: Constipation Metformin HCl (Glucophage) 500 mg PO QAM-WM [facility] Last Admin: 03/28/18 07:30 Dose: 500 mg Mometasone Furoate/Formoterol Fumar (Dulera 100 Mcg/5 Mcg Inhaler) 1 puff INH BID-RT [facility] Last Admin: 03/28/18 06:21 Dose: 1 puff Montelukast Sodium (Singulair) 10 mg PO QPM [facility] Last Admin: 03/27/18 20:48 Dose: 10 mg Nicotine (Nicoderm Patch) 14 mg TD Q24HR [facility] Last Admin: 03/27/18 20:48 Dose: 14 mg Prednisone (Prednisone) 40 mg PO QA-[facility] Last Admin: 03/28/18 07:29 Dose: 40 mg Promethazine HCl/Codeine (Phenergan/Codeine Syrup) 5 ml PO Q4H PRN PRN Reason: Cough Last Admin: 03/23/18 20:15 Dose: 5 ml Sodium Chloride (Flush - Normal Saline) 10 ml IVF Q12HR [facility] Last Admin: 03/28/18 07:30 Dose: 10 ml Sodium Chloride (Flush - Normal Saline) 10 ml IVF PRN PRN PRN Reason: Saline Flush
[2018-03-28] MEDS: Bisacodyl 5 MG TAB PO SCH (20:36)
[2018-03-28] MEDS: Montelukast Sodium 10 mg Tablet PO SCH (20:36)
[2018-03-28] MEDS: Nicotine 14 MG PATCH TD SCH (20:36)
[2018-03-29] MEDS: Ipratropium Oral Inhaler (200 INHALATIONS) INH SCH (06:45)
[2018-03-29] MEDS: Mometasone/Formoterol 120 PUFF INHALER INH SCH (06:45)
[2018-03-29] MEDS: predniSONE 20 MG TAB PO SCH (08:08)
[2018-03-29] MEDS: Aspirin 81 mg Enteric Coated Tablet PO SCH (08:09)
[2018-03-29] MEDS: guaiFENesin ER 600 MG TAB PO SCH (08:09)
[2018-03-29] MEDS: metFORMIN 500 MG TAB PO SCH (08:09)
[2018-03-29] MEDS: Famotidine 20 MG TAB PO SCH (08:09)
[2018-03-29] MEDS: Enoxaparin Sodium 40 MG/0.4 ML SYRINGE SC SCH (08:10)
[2018-03-29] MEDS: Lisinopril 10 MG TAB PO SCH (08:14)
[2018-03-29 12:43] VITALS: BP 124/88; TEMP 98.5
--- NOTE | 2018-03-30 04:58 | DIS ---
DATE OF ADMISSION: 03/22/2018 DATE OF DISCHARGE: 03/29/2018 DISCHARGE DIAGNOSES: As of the followin. Acute respiratory failure with hypoxemia most likely secondary to either chronic obstructive pulm onary disease or asthma exacerbation. 2. Hypertension. 3. Tobacco use. HOSPITAL COURSE: Patient is a 52-year-old female who initially presented to the hospital with shortn ess of breath. Given patient's history of asthma and also smoking, which most likely she does have u nderlying history of COPD. She was treated for an acute exacerbation starting with DuoNebs, steroids , and also antibiotics. Patient had a very slow improvement throughout the hospital stay. Respirato ry viral panel was checked with this patient, which was negative. No flu was checked on this patient . Patient continued to improve. She was discharged home in good health. HOME MEDICATIONS: Her home medications are as of the following: Ranitidine 150 mg b.i.d., lisinopri l 10 mg daily, aspirin 81 mg daily, metformin 500 mg daily, ipratropium two puffs inhalation b.i.d., Maggie 180 mg daily, nicotine patch q.24 hours. I have told her not to smoke while she has a patch on. Singulair 10 mg every day, Dulera 1 puff b.i.d., DuoNeb 3 mL q.4 hours p.r.n., and Tessalo n Perles 100 mg q.6 hours p.r.n. She also was given a Medrol Dosepak. Again, she will be discharged home. She will follow up with her primary care doctor next week. PHYSICAL EXAMINATION: VITAL SIGNS: Temperature 98.5, heart rate of 79, 128/83, 100% room air. GENERAL: She is awake, alert, oriented, does not appear in any distress. CARDIOVASCULAR: S1, S2 present. No murmurs, rubs, or gallops. ABDOMEN: Soft, nontender. Bowel sounds are present x2. EXTREMITIES: No edema. LUNGS: Again were clear today compared to yesterday. Patient feels much better and she wants to go home.
== END 2018-03-29 13:00 | disposition home or self-care (01) | DRG 189 ==
LOC: ERS 15:37 → T4-B 16:45
PROVIDERS: ADMIT Internal Medicine; ATTEND Internal Medicine
DX: J96.01 Acute respiratory failure with hypoxia (principal); J44.1 Chronic obstructive pulmonary disease with (acute) exacerbation; J45.901 Unspecified asthma with (acute) exacerbation; Z68.41 Body mass index [BMI] 40.0-44.9, adult; I10 Essential (primary) hypertension; F17.210 Nicotine dependence, cigarettes, uncomplicated; E11.9 Type 2 diabetes mellitus without complications; E66.9 Obesity, unspecified; Z87.11 Personal history of peptic ulcer disease; Z79.84 Long term (current) use of oral hypoglycemic drugs; Z79.82 Long term (current) use of aspirin; Z79.899 Other long term (current) drug therapy
CPT/HCPCS: 36415; 36416; 71045; 80048; 80053; 82553; 83605; 83880; 84484; 85025; 87040; 87633; 87798; 90471; 90670; 93005; 94640; 94644; 96365; 96375; G0009; J0456; J0696; J1650; J2920; J2930; J7050; J7506; J7611; J7620